=== PATIENT | male | born 1960 | race Caucasian/White ===

== ENCOUNTER 2018-04-15 14:11 | Emergency (ER) | payer OTHER ==
[~2018-04-15] VITALS: Ht 170.2 cm; Wt 96.6 kg
[~2018-04-15 14:11] MED LIST: CARVEDILOL12.5 M1 PO; EFFEXOR-XR150 MG PO; GEODON80 MG PO; GLUCOVANCE1 TA2 PO; JANUVIA100 M1 PO; LOVAZA1 G1 PO; LOXAPINE25 MG PO; PRILOSEC20 MG PO; PRINIVIL20 MG PO; RXMED PO; SEN PO; SEROQUEL200 MG PO; XAN1 PO
[2018-04-15 14:15] VITALS: Ht 170.2 cm; Wt 96.6 kg
[2018-04-15 16:44] VITALS: BP 135/91
== END 2018-04-15 17:05 | disposition home or self-care (01) ==
LOC: ED 14:11
DX: G24.8 Other dystonia (principal); F20.0 Paranoid schizophrenia; J44.1 Chronic obstructive pulmonary disease with (acute) exacerbation; I10 Essential (primary) hypertension; E11.9 Type 2 diabetes mellitus without complications
CPT/HCPCS: 82962; J0515; J1200; J2060; J7030